=== PATIENT | male | born 1955 | race Caucasian/White ===

== ENCOUNTER 2025-04-10 03:25 | Emergency (ER) | payer MEDICARE, OTHER, SELFPAY ==
[2025-04-10] VITALS (7 sets, daily range): BP systolic 89–130; BP diastolic 54–76; BMI 20.4
[2025-04-10 04:51] LABS: Hematocrit 37.1 % (39.0-52.0); Hemoglobin 12.8 g/dL (13.0-18.0); Mean Corp Hgb Conc. 34.5 g/dL (33.0-37.0); Mean Corpuscular Volume 93.5 fL (80.0-94.0); Nucleated Red Blood Cells % 0 % (-); Platelet Count 193 10^3/uL (130-400); Red Cell Dist. Width 11.9 % (11.5-14.5)
[2025-04-10] MEDS: NSS 1000 IV ×2 (05:00→06:23)
[2025-04-10 05:14] LABS: ALT (SGPT) 29 U/L (0-50); AST (SGOT) 35 U/L (17-59); Albumin 4.2 g/dl (3.5-5.0); Alkaline Phosphatase 145 U/L (38-126); Blood Urea Nitrogen 14 mg/dl (9-20); Calcium 9.5 mg/dl (8.4-10.2); Carbon Dioxide 28 mmol/L (22-30); Chloride 98 mmol/L (98-107); Estimated Creatinine Clearance 70 ml/min; Glucose 109 mg/dl (70-99); Potassium 4.5 mmol/L (3.5-5.1); Sodium 134 mmol/L (135-145); Total Protein 6.7 g/dl (6.3-8.2); eGFR > 60.00
--- NOTE | 2025-04-10 06:35 | ED.GENMED ---
History of Present Illness
General
Chief Complaint: Withdrawal Symptoms
Time Seen by Provider: 04/10/25 06:06
History of Present Illness
History of Present Illness:
69-year-old male with history of chronic back pain and anemia presenting to the emergency department for concern of withdrawal symptoms. 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 For the past week he has been going to an outpatient
facility for Subutex. Notes that he has been tolerating the Subutex with some minimal nausea and vomiting, however last night symptoms worsened with nausea, vomiting, diarrhea. Does note that he has also been clonidine for withdrawal, however did
not take it last night because he does not like the way that it makes him feel. Denies any associated chest pain, difficulty breathing, abdominal pain. Denies any seizures. Reports that a coworker did have similar symptoms, however was not sure
if it was related. Denies any ingestion of abnormal food prior to onset of symptoms. Denies additional acute medical complaints
Phy Exam
Physical Exam
Physical Exam:
General: Well-appearing, no clinical signs of dehydration, nontoxic and in no acute distress
HEENT: protecting airway
Neck: appears supple
CV: Normal heart rate, regular rhythm
Resp: No accessory muscle use, no increased work of breathing, lungs clear to auscultation bilaterally
Abd: No distention
Extremities: No deformities, no swelling
Neuro: alert, no focal neurologic deficit
: deferred
Rectal: deferred
Psych: Normal affect
Skin: Intact
Course
Orders/Labs/Results
Orders:
Orders
04/10/25 04:39
EKG [Electrocardiogram (*1)] Urgent
Reason for Study: Fatigue / Weakness
EKG- Treatment ONCE
04/10/25 04:40
Complete Blood Count/With Diff Urgent
Comprehensive Metabolic Panel Urgent
04/10/25 06:23
0.9% Sodium Chloride 1000 ml [Nss] 1,000 ml IV BOLUS
04/10/25 06:25
0.9% Sodium Chloride 1000 ml [Nss] 1,000 ml IV BOLUS
04/10/25 06:27
0.9% Sodium Chloride 1000 ml [Nss] 1,000 ml IV BOLUS
Abnormal Lab Results
04/10/25
04:40
RBC 3.97 L 10^6/uL
(4.70-6.10)
Hgb 12.8 L g/dL
(13.0-18.0)
Hct 37.1 L %
(39.0-52.0)
MCH 32.2 H pg
(27.0-31.0)
Absolute Lymphs (auto) 0.4 L 10^3/uL
(1.2-3.4)
Neutrophils % 89.5 H %
(42.2-75.2)
Lymphocytes % 7.9 L %
(20.5-51.1)
Sodium 134 L mmol/L
(135-145)
Glucose 109 H mg/dl
(70-99)
Total Bilirubin 2.1 H mg/dl
(0.2-1.3)
Alkaline Phosphatase 145 H U/L
(38-126)
04/10/25 04:40
04/10/25 04:40
Vital Signs
Initial and Last Documented VS:
Initial Vital Signs
Temp Pulse Resp BP Pulse Ox
98.8 F 113 20 130/75 92
04/10/25 03:58 04/10/25 03:58 04/10/25 03:58 04/10/25 03:58 04/10/25 03:58
Last Documented Vital Signs
Temp Pulse Resp BP Pulse Ox
98.8 F 97 17 119/72 91
04/10/25 03:58 04/10/25 06:00 04/10/25 06:00 04/10/25 06:00 04/10/25 06:00
MDM/Problems Addressed
MDM/Problems Addressed:
69-year-old male with history of opioid addiction presenting for concern of withdrawal. Vital signs on arrival significant for mild tachycardia.
On exam patient is resting comfortably, no acute distress or discomfort. Patient received a liter of IV fluids prior to my assessment and notes that he is already feeling better. No active emesis here. Symptoms could be consistent with
withdrawal, however notes that he was overall tolerating Subutex within the past week and symptoms started acutely. In the setting of vomiting and diarrhea, gastroenteritis is also a consideration. Notes possible sick contact. At this time,
patient nontoxic, unremarkable cardiac, pulmonary, neurologic exam. Labs obtained prior to my assessment, unremarkable. Did question if patient would like to consider inpatient detox, and at this time he does not. He is declining any medications
at this time. Will administer additional liter of fluids and p.o. trial. Otherwise, feel stable for discharge with outpatient continued detox and follow-up
*Pulse Oximetry
SaO2: 91
Oxygen Mode of Delivery: Room air
Patient hypoxic: no
*Critical Care Note
Total Time (30-74mins, 75-104mins- exclusive of procedures): Not Applicable
ED Attending Note
-
Portions of this chart may have been created with voice recognition software.� Occasional wrong word or��sound alike� substitutions may have occurred due to the inherent limitations of voice recognition software.
Discharge Plan
Interventions
Interventions:
*Risk Screen - Suicide Last Done: 04/10/25 03:58
*General Assessment Last Done: 04/10/25 03:58
*Neglect/Abuse Screening Last Done: 04/10/25 03:58
*ED- Fall Risk Assessment Last Done: 04/10/25 04:36
*ED COVID-19 Vaccine History Last Done: 04/10/25 04:36
*ED Influenza Vaccine History Last Done: 04/10/25 04:36
ED- Neurological Assessment Last Done: 04/10/25 04:36
ED-Psychological Assessment Last Done: 04/10/25 04:36
Discharge Date and Time
Print Language: BURKIN[place]
== END 2025-04-10 08:25 | disposition home or self-care (01) ==
LOC: EMR 03:25
PROVIDERS: Emergency Medicine; EMERGENCY PHYSICIAN Student in an Organized Health Care Education/Training Program; FAMILY PHYSICIAN Internal Medicine
DX: F11.20 Opioid dependence, uncomplicated (principal); G89.29 Other chronic pain; R11.2 Nausea with vomiting, unspecified
CPT/HCPCS: 96360; 96361; 99284; 80053; 85025; 93005

== ENCOUNTER → 2025-05-10 07:14 | Outpatient (REF) | payer MEDICARE, OTHER, SELFPAY | LOC: RAD 07:14 | PROVIDERS: ATTENDING PHYSICIAN Internal Medicine | DX: R05.2 Subacute cough (principal) | CPT/HCPCS: 71046 ==

== ENCOUNTER → 2025-06-05 07:38 | Outpatient (REF) | payer MEDICARE, OTHER, SELFPAY | LOC: RAD 07:38 | PROVIDERS: ATTENDING PHYSICIAN Internal Medicine Critical Care Medicine; FAMILY PHYSICIAN Internal Medicine | DX: J84.9 Interstitial pulmonary disease, unspecified (principal); R06.09 Other forms of dyspnea | CPT/HCPCS: 71250 ==